=== PATIENT | male | born 1980 | race Caucasian/White ===

== ENCOUNTER → 2018-05-17 | Outpatient (CLI) | payer OTHER | LOC: COL.VAS 08:00 | DX: I08.1 Rheumatic disorders of both mitral and tricuspid valves (principal) ==

== ENCOUNTER → 2018-10-25 | Outpatient (CLI) | payer OTHER ==
[2018-10-25 16:39] LABS: BASO % 0.3 % (0.0-2.0); EOS # 0.1 (0.0-0.7); EOS % 1.7 % (0-4.0); GRAN # 3.7 (1.4-6.5); GRAN % 63.5 % (42.2-75.2); HEMATOCRIT 41.3 % (42.0-52.0); HEMOGLOBIN 13.9 g/dl (13.5-18.0); LYMPH # 1.5 (1.2-3.4); LYMPH % 26.4 % (20.0-51.0); MEAN CELL VOLUME 94 fl (80.0-100.0); MEAN CORPUSCULAR HEMOGLOBIN 32 pg (27.0-31.0); MEAN CORPUSCULAR HGB CONC 34 g/dl (33.0-37.0); MEAN PLATELET VOLUME 10.4 fl (7.4-10.4); MONO # 0.5 (0.1-0.6); MONO % 7.8 % (1.7-9.3); PLATELET COUNT 196 K/mm3 (130-400); REDCELL DISTRIBUTION WIDTH-CV 11.7 % (11.5-14.5)
== END ==
LOC: COL.LAB 15:48
PROVIDERS: Internal Medicine Pulmonary Disease
DX: R06.02 Shortness of breath (principal)

== ENCOUNTER → 2018-11-02 | Outpatient (CLI) | payer OTHER | LOC: COL.VAS 08:00 | DX: I42.9 Cardiomyopathy, unspecified (principal); I51.7 Cardiomegaly; I34.0 Nonrheumatic mitral (valve) insufficiency ==

== ENCOUNTER → 2018-12-07 | Outpatient (CLI) | payer OTHER ==
--- NOTE | 2018-12-07 11:15 | NUR ---
PATIENT ARRIVED FOR METHACHOLINE CHALLENGE TESTING AND PATIENT HAD TAKEN SYMBICORT INHALER THIS AM, WE ARE NOT ABLE TO PERFORM TESTING DUE TO PATIENT NOT BEING PROPERLY PREPARED FOR TEST.PATIENT GOING TO TALK WITH PHYSICIAN THEN MAYBE RESCHEDULE.
== END ==
LOC: COL.PUL 11-29 10:00
DX: R06.02 Shortness of breath (principal)

== ENCOUNTER 2019-03-05 16:14 | Emergency (ER) | payer OTHER ==
[~2019-03-05] VITALS: Ht 188 cm; Wt 77.0 kg
[2019-03-05 16:18] VITALS: TEMP 98
[2019-03-05 16:38] LABS: COLLECTION METHOD CLEAN CATCH
[2019-03-05 16:42] LABS: BASO % 0.5 % (0.0-2.0); EOS % 0.6 % (0-4.0); GRAN # 4.8 (1.4-6.5); GRAN % 73.2 % (42.2-75.2); HEMATOCRIT 40.7 % (42.0-52.0); HEMOGLOBIN 13.7 g/dl (13.5-18.0); LYMPH # 1.2 (1.2-3.4); LYMPH % 18.4 % (20.0-51.0); MEAN CELL VOLUME 94 fl (80.0-100.0); MEAN CORPUSCULAR HEMOGLOBIN 32 pg (27.0-31.0); MEAN CORPUSCULAR HGB CONC 34 g/dl (33.0-37.0); MEAN PLATELET VOLUME 10.9 fl (7.4-10.4); MONO # 0.5 (0.1-0.6); MONO % 7.1 % (1.7-9.3); PLATELET COUNT 143 K/mm3 (130-400); RED BLOOD COUNT 4.34 M/mm3 (4.20-5.60); REDCELL DISTRIBUTION WIDTH-CV 12.3 % (11.5-14.5)
[2019-03-05 16:48] LABS: PH 7 (5-8); SQUAMOUS EPITHELIAL None Seen /hpf; URINE APPEARANCE Clear; URINE BACTERIA None Seen /hpf; URINE BILIRUBIN Negative (NEGATIVE); URINE BLOOD Negative (NEGATIVE); URINE COLOR Straw; URINE GLUCOSE Negative (NEGATIVE); URINE KETONE Negative (NEGATIVE); URINE LEUKOCYTE ESTERASE Negative (NEGATIVE); URINE NITRATE Negative (NEGATIVE); URINE PROTEIN(semi-quant) Negative (NEGATIVE); URINE RBC 0-2 /hpf; URINE UROBILINOGEN Negative (NEGATIVE)
[2019-03-05 16:57] LABS: ALANINE AMINOTRANSFERASE 23 U/L (21-72); ALBUMIN 4.3 gm/dL (3.5-5.0); ALKALINE PHOSPHATASE 76 U/L (50-136); ANION GAP 7 mmol/L (7-16); AST,SGOT 30 U/L (15-37); BILIRUBIN,TOTAL 0.9 mg/dL (0.0-1.0); BLOOD UREA NITROGEN 19 mg/dL (9-20); CALCIUM 9.5 mg/dL (8.4-10.2); CARBON DIOXIDE 26 mmol/L (22-30); CHLORIDE 105 mmol/L (98-107); CREATININE, serum 1.34 (0.66-1.25); GLUCOSE 102 mg/dL (74-106); LIPASE 86 U/L (23-300); POTASSIUM 4.2 mmol/L (3.4-5.0); SODIUM 139 mmol/L (137-145)
[2019-03-05 17:18] LABS: C-REACTIVE PROTEIN < 0.5 mg/dL (0.0-0.9)
[2019-03-05] MEDS ORDERED: NORCO 325 MG-51 TAB PO (17:50)
[2019-03-05] MEDS ORDERED: ZOFRAN 4MG T4 MG/TAB PO (17:50)
[2019-03-05 18:16] VITALS: BP 105/76; PULSE 80
== END 2019-03-05 18:18 | disposition home or self-care (01) ==
LOC: COL.ER 16:14
PROVIDERS: Emergency Medicine
DX: N20.1 Calculus of ureter (principal)
CPT/HCPCS: J1885; J2405; J7030; Q9967

== ENCOUNTER → 2019-08-22 | Outpatient (CLI) | payer OTHER ==
[~2019-08-22] MED LIST: NORCO 325 MG-51 TAB PO; ZOFRAN 4MG T4 MG/TAB PO
== END ==
LOC: COL.RAD 08-17 10:00
DX: I77.810 Thoracic aortic ectasia (principal); M48.54XA Collapsed vertebra, not elsewhere classified, thoracic region, initial encounter for fracture
CPT/HCPCS: Q9967

== ENCOUNTER → 2019-09-27 | Outpatient (CLI) | payer OTHER ==
[2019-09-27 09:29] LABS: BASO % 0.6 % (0.0-2.0); EOS % 0.6 % (0-4.0); GRAN # 1.9 (1.4-6.5); GRAN % 54.9 % (42.2-75.2); HEMOGLOBIN 14.6 g/dl (13.5-18.0); LYMPH # 1.2 (1.2-3.4); MEAN CELL VOLUME 94 fl (80.0-100.0); MEAN CORPUSCULAR HEMOGLOBIN 31 pg (27.0-31.0); MEAN CORPUSCULAR HGB CONC 33 g/dl (33.0-37.0); MONO # 0.3 (0.1-0.6); MONO % 9.6 % (1.7-9.3); PLATELET COUNT 136 K/mm3 (130-400); RED BLOOD COUNT 4.67 M/mm3 (4.20-5.60); REDCELL DISTRIBUTION WIDTH-CV 11.8 % (11.5-14.5)
[2019-09-27 09:39] LABS: ANION GAP 9 mmol/L (7-16); BLOOD UREA NITROGEN 29 mg/dL (9-20); CALCIUM 9.7 mg/dL (8.4-10.2); CARBON DIOXIDE 28 mmol/L (22-30); CHLORIDE 104 mmol/L (98-107); CHOLESTEROL 119 mg/dL (120-200); CHOLESTEROL RISK RATIO 2.5; CREATININE, serum 1.12 (0.66-1.25); GLUCOSE 84 mg/dL (74-106); HDL CHOLESTEROL 47 mg/dL; LDL CHOLESTEROL 65 mg/dL; POTASSIUM 4.1 mmol/L (3.4-5.0); SODIUM 141 mmol/L (137-145); TRIGLYCERIDE 36 mg/dL
[2019-09-27 09:41] LABS: C-REACTIVE PROTEIN < 0.5 mg/dL (0.0-0.9)
== END ==
LOC: COL.LAB 09:09
DX: Z00.00 Encounter for general adult medical examination without abnormal findings (principal); I51.7 Cardiomegaly; I42.0 Dilated cardiomyopathy; E55.9 Vitamin D deficiency, unspecified

== ENCOUNTER → 2020-10-02 | Outpatient (CLI) | payer OTHER | LOC: COL.RAD 08:11 | DX: M16.11 Unilateral primary osteoarthritis, right hip (principal); Z98.890 Other specified postprocedural states | CPT/HCPCS: A9585; Q9967 ==

== ENCOUNTER 2021-01-07 08:04 | Emergency (ER) | payer OTHER ==
[~2021-01-07] VITALS: Ht 188 cm; Wt 77.3 kg
[2021-01-07 08:15] VITALS: BP 126/67
[2021-01-07 08:42] LABS: BASO % 0.6 % (0.0-2.0); EOS % 0.9 % (0-4.0); GRAN # 1.6 (1.4-6.5); GRAN % 47.9 % (42.2-75.2); HEMATOCRIT 42.1 % (42.0-52.0); HEMOGLOBIN 14.5 g/dl (13.5-18.0); LYMPH # 1.3 (1.2-3.4); LYMPH % 39.1 % (20.0-51.0); MEAN CELL VOLUME 93 fl (80.0-100.0); MEAN CORPUSCULAR HEMOGLOBIN 32 pg (27.0-31.0); MEAN CORPUSCULAR HGB CONC 34 g/dl (33.0-37.0); MEAN PLATELET VOLUME 11.3 fl (7.4-10.4); MONO # 0.4 (0.1-0.6); MONO % 11.2 % (1.7-9.3); PLATELET COUNT 153 K/mm3 (130-400); RED BLOOD COUNT 4.52 M/mm3 (4.20-5.60); REDCELL DISTRIBUTION WIDTH-CV 11.4 % (11.5-14.5)
[2021-01-07 08:45] LABS: ALANINE AMINOTRANSFERASE 22 U/L (4-49); ALBUMIN 4.4 gm/dL (3.5-5.0); ALKALINE PHOSPHATASE 71 U/L (50-136); ANION GAP 11 mmol/L (7-16); AST,SGOT 36 U/L (15-37); BILIRUBIN,TOTAL 1.2 mg/dL (0.0-1.0); BLOOD UREA NITROGEN 25 mg/dL (9-20); CALCIUM 9.4 mg/dL (8.4-10.2); CARBON DIOXIDE 21 mmol/L (22-30); CHLORIDE 104 mmol/L (98-107); CREATININE, serum 1.05 (0.66-1.25); GLUCOSE 147 mg/dL (74-106); LIPASE 52 U/L (23-300); POTASSIUM 3.5 mmol/L (3.4-5.0); SODIUM 137 mmol/L (137-145)
[2021-01-07 08:47] LABS: C-REACTIVE PROTEIN < 0.5 mg/dL (0.0-0.9)
[2021-01-07 10:10] LABS: COLLECTION METHOD CLEAN CATCH
[2021-01-07] MEDS ORDERED: ZOFRAN ODT4 MG PO (10:30)
[2021-01-07] MEDS ORDERED: BONINE25 MG PO (10:30)
[2021-01-07 10:53] VITALS: PULSE 62
[2021-01-07 11:00] LABS: MUCOUS Present /lpf; PH 6 (5-8); SQUAMOUS EPITHELIAL None Seen /hpf; URINE APPEARANCE Clear; URINE BACTERIA None Seen /hpf; URINE BILIRUBIN Negative (NEGATIVE); URINE BLOOD Negative (NEGATIVE); URINE COLOR Yellow; URINE GLUCOSE Negative (NEGATIVE); URINE KETONE 2+ (NEGATIVE); URINE LEUKOCYTE ESTERASE Negative (NEGATIVE); URINE NITRATE Negative (NEGATIVE); URINE PROTEIN(semi-quant) 1+ (NEGATIVE); URINE RBC 0-2 /hpf; URINE UROBILINOGEN Negative (NEGATIVE)
== END 2021-01-07 10:37 | disposition home or self-care (01) ==
LOC: COL.ER 08:04
PROVIDERS: Family Medicine
DX: G58.8 Other specified mononeuropathies (principal)
CPT/HCPCS: J2060; J2405; J7120